=== PATIENT | female | born 1995 | race Caucasian/White ===

== ENCOUNTER 2019-01-22 18:41 | Emergency (ER) | payer OTHER ==
[~2019-01-22] VITALS: Ht 149.9 cm; Wt 56.0 kg
[2019-01-22 18:53] VITALS: BP 139/96
[2019-01-22] MEDS ORDERED: LIDOCAINE 1%-EPI 1:100K, 20ML INFIL ONE (22:00)
[2019-01-22] MEDS ORDERED: LIDOCAINE-MPF 1%, 5ML ONE (22:02)
--- NOTE | 2019-01-22 22:04 | NUR ---
PT HERE FOR CYST ON LABIA. PT REPORTS PAIN WITH WIPING AND WALKING. PT DENIES ANY RECENT SHAVING OR HX OF VAGIAL CYST. PT ABLE TO STILL URINATE. PT RESTING IN BED. PA GIVEN LIDOCAIN FOR I/D OF CYST.
--- NOTE | 2019-01-22 22:45 | NUR ---
GIVEN DC INSTRUCTION PT UNDERSTOOD PT UP AMBULATED TO CHECK OUT WITH FRIEND
== END 2019-01-22 22:47 | disposition home or self-care (01) ==
LOC: ED 22:17
DX: N75.1 Abscess of Bartholin's gland (principal)
CPT/HCPCS: 56420; 99283